=== PATIENT | male | born 1975 | race Caucasian/White ===

== ENCOUNTER 2017-02-21 22:46 | Inpatient (IN) | payer SELFPAY ==
[2017-02-21] MEDS ORDERED: SODIUM CHLOR 0.9% 1000 ML INJ 1,000 ML IV SCH (22:49)
[2017-02-21 22:50] VITALS: BP 95/66; PULSE 103; RESP 20
--- NOTE | 2017-02-21 22:54 | PD ---
HPI Chief Complaint: OD/ Ingestion Time Seen by Provider: 22:49 Travel History International Travel<30 days: No Contact w/Intl Traveler<30days: No Traveled to known affect area: No History of Present Illness HPI EMS AND POLICE PLACED HANDCUFFS TO ASSIST TRANSFER, PT WAS AMS, SPEAKING FASTH AND GIBBERISHLY INITIALLY FOUND BRADYPNEIC AND PINPOINT PUPILS BUT BECAME VERY AGITATED AFTER NARCAN GIVEN. SO MUCH SO THAT HE REQUIRED HANDCUFFS PREVIOUSLY MENTIONED PFSH Social History Tobacco Use: Yes Allergies-Medications (Allergen,Severity, Reaction): Coded Allergies: No Known Allergies (Unverified , 02/21/17) Reported Meds & Prescriptions Reported Meds & Active Scripts Active Active Prescriptions or Reported Medications Unobtainable Review of Systems ROS Limitations: Intoxication, Altered Mental Status Except as stated in HPI: all other systems reviewed are Neg Physical Exam Narrative GENERAL: SKIN: Warm and dry. HEAD: Atraumatic. Normocephalic. EYES: Pupils equal and round. No scleral icterus. No injection or drainage. ENT: No nasal bleeding or discharge. Mucous membranes pink and moist. NECK: Trachea midline. No JVD. CARDIOVASCULAR: Regular rate and rhythm, TACHYCARDIC RESPIRATORY: No accessory muscle use. Clear to auscultation. Breath sounds equal bilaterally. GASTROINTESTINAL: Abdomen soft, non-tender, nondistended. Hepatic and splenic margins not palpable. MUSCULOSKELETAL: Extremities without clubbing, cyanosis, or edema. No obvious deformities. NEUROLOGICAL: Awake and alert. No obvious cranial nerve deficits. Motor grossly within normal limits. Five out of 5 muscle strength in the arms and legs. Normal speech. PSYCHIATRIC: PRESSURED SPEECH, AND FLIGHT OF IDEAS, SHORT ATTENTION SPAN Data Data Last Documented VS Vital Signs Date Time Temp Pulse Resp B/P Pulse Ox O2 Delivery O2 Flow Rate FiO2 02/22/17 02:10 100 18 109/72 100 Nasal Cannula 2 Orders Electrocardiogram (02/21/17 22:49) Complete Blood Count With Diff (02/21/17 22:49) Comprehensive Metabolic Panel (02/21/17 22:49) Creatine Kinase (Cpk) (02/21/17 22:49) Prothrombin Time / Inr (Pt) (02/21/17 22:49) Act Partial Throm Time (Ptt) (02/21/17 22:49) Troponin I (02/21/17 22:49) Thyroid Stimulating Hormone (02/21/17 22:49) Urinalysis - C+S If Indicated (02/21/17 22:49) Chest, Single Ap (02/21/17 22:49) Ct Brain W/O Iv Contrast(Rout) (02/21/17 22:49) Blood Glucose (02/21/17 22:49) Ecg Monitoring (02/21/17 22:49) Iv Access Insert/Monitor (02/21/17 22:49) Oximetry (02/21/17 22:49) Sodium Chloride 0.9% Flush (Ns Flush) (02/21/17 23:00) Sodium Chlor 0.9% 1000 Ml Inj (Ns 1000 M (02/21/17 22:49) Drug Screen, Random Urine (02/21/17 22:49) Alcohol (Ethanol) (02/21/17 22:49) Tylenol (Acetaminophen) (02/21/17 22:49) Salicylates (Aspirin) (02/21/17 22:49) Haloperidol Inj (Haldol Inj) (02/21/17 23:00) Lorazepam Inj (Ativan Inj) (02/21/17 23:00) CKMB (02/21/17 22:50) CKMB% (02/21/17 22:50) Sodium Chlor 0.9% 1000 Ml Inj (Ns 1000 M (02/22/17 00:15) Ceftriaxone Inj (Rocephin Inj) (02/22/17 01:30) Azithromycin Inj (Zithromax Inj) (02/22/17 01:30) Arterial Blood Gas (Abg) (02/22/17 01:26) Admit Order (Ed Use Only) (02/22/17 02:52) Place In Observation (02/22/17 ) Vital Signs (Adult) Q4H (02/22/17 02:52) Activity Oob With Assistance (02/22/17 02:52) Diet Heart Healthy (02/22/17 Breakfast) Sodium Chloride 0.9% Flush (Ns Flush) (02/22/17 03:00) Sodium Chloride 0.9% Flush (Ns Flush) (02/22/17 09:00) Basic Metabolic Panel (Bmp) (02/23/17 06:00) Complete Blood Count With Diff (02/23/17 06:00) Case Management Consult (02/22/17 02:52) Naloxone Inj (Narcan Inj) (02/22/17 03:00) Labs Laboratory Tests Test 02/21/17 02/22/17 22:50 01:28 Prothrombin Time 12.5 SEC Prothromb Time International 1.1 RATIO Ratio Activated Partial 28.3 SEC Thromboplast Time Salicylates Level LESS THAN 1.7 MG/DL White Blood Count 7.4 TH/MM3 Red Blood Count 5.05 MIL/MM3 Hemoglobin 16.0 GM/DL Hematocrit 45.8 % Mean Corpuscular Volume 90.7 FL Mean Corpuscular Hemoglobin 31.6 PG Mean Corpuscular Hemoglobin 34.8 % Concent Red Cell Distribution Width 15.3 % Platelet Count 63 TH/MM3 Mean Platelet Volume 8.1 FL Neutrophils (%) (Auto) 67.9 % Lymphocytes (%) (Auto) 20.0 % Monocytes (%) (Auto) 8.0 % Eosinophils (%) (Auto) 3.8 % Basophils (%) (Auto) 0.3 % Neutrophils # (Auto) 5.0 TH/MM3 Lymphocytes # (Auto) 1.5 TH/MM3 Monocytes # (Auto) 0.6 TH/MM3 Eosinophils # (Auto) 0.3 TH/MM3 Basophils # (Auto) 0.0 TH/MM3 CBC Comment AUTO DIFF Differential Comment AUTO DIFF CONFIRMED Platelet Estimate LOW Platelet Morphology Comment NORMAL Sodium Level 141 MEQ/L Potassium Level 3.6 MEQ/L Chloride Level 104 MEQ/L Carbon Dioxide Level 28.9 MEQ/L Anion Gap 8 MEQ/L Blood Urea Nitrogen 20 MG/DL Creatinine 1.21 MG/DL Estimat Glomerular Filtration 67 ML/MIN Rate Random Glucose 125 MG/DL Calcium Level 7.8 MG/DL Total Bilirubin 2.0 MG/DL Aspartate Amino Transf 52 U/L (AST/SGOT) Alanine Aminotransferase 93 U/L (ALT/SGPT) Alkaline Phosphatase 89 U/L Total Creatine Kinase 472 U/L Creatine Kinase MB 6.4 NG/ML Creatine Kinase MB % 1.4 % Troponin I LESS THAN 0.02 NG/ML Total Protein 6.6 GM/DL Albumin 3.3 GM/DL Thyroid Stimulating Hormone 1.110 uIU/ML 3rd Gen Acetaminophen Level LESS THAN 2.0 MCG/ML Ethyl Alcohol Level LESS THAN 3 MG/DL Blood Gas Puncture Site RT BRACHIAL Blood Gas Patient Temperature 98.6 Blood Gas HCO3 24 mmol/L Blood Gas Base Excess -0.7 mmol/L Blood Gas Oxygen Saturation 90 % Arterial Blood pH 7.37 Arterial Blood Partial 43 mmHg Pressure CO2 Arterial Blood Partial 64 mmHG Pressure O2 Arterial Blood Oxygen Content 19.0 Vol % Arterial Blood 1.4 % Carboxyhemoglobin Arterial Blood Methemoglobin 0.6 % Blood Gas Hemoglobin 14.9 G/DL Oxygen Delivery Device NASAL CANNULA Blood Gas Liter Flow 3.5 L/M MDM Medical Decision Making Medical Screen Exam Complete: Yes Emergency Medical Condition: Yes Medical Record Reviewed: Yes Interpretation(s) NSR 90, NL INTERVALS, NO STEMI PATTERN NOTED Differential Diagnosis ICH V TOX RELATED V ELECTROLYTE ABNL V COINGESTIONS V RHABDO Narrative Course PATIENT FOUND TO HAVE BILATERAL LUNG INFILTRATES POST HEROIN OD, ALONG WITH HYPOXEMIA C/W NONCARDIOGENIC PULM EDEMA V BILATERAL PNA TREATED WITH ABX AND SUPPLEMENTAL OXYGEN GIVEN ALONG WITH AGGRESSIVE HYDRATION PER SEPSIS PROTOCOL. PATIENT DID NOT REQUIRE INTUBATION OR BIPAP, HE TOLERATED SUPPLEMENTAL OXYGEN Critical Care Narrative CRITICAL CARE NOTE: With evaluation of the patient, labs, EKG, receipt of radiologic studies, administration of medications, reevaluation the patient and discussion of the patient with the admitting physicians, the total critical care time was [60] minutes. Time to perform other separately billable procedures was not included in the critical care time. Diagnosis Primary Impression: AMS DUE TO SUBSTANCE ABUSE Additional Impressions: NONCARDIOGENIC PULMONARY EDEMA V BILATERAL PNEUMONIA HYPOXEMIA Admitting Information Admitting Physician Requests: Observation Scripts Unable to Obtain Active Prescriptions or Reported Meds Willi Macdonald MD Feb 21, 2017 22:54
[2017-02-21] MEDS ORDERED: LORazepam 2 MG/ML VIAL IV PUSH ONE (23:00)
[2017-02-21] MEDS ORDERED: HALOPERIDOL LACTATE 5 MG/ML AMP IM ONE (23:00)
[2017-02-21] MEDS ORDERED: SODIUM CHLORIDE 0.9% FLUSH 5 ML FLUSH IV FLUSH PRN (23:00)
[2017-02-21 23:31] LABS: BASOPHIL % 0.3 % (0.0-2.0); EOSINOPHIL # 0.3 TH/MM3 (0-0.4); EOSINOPHIL % 3.8 % (0.0-4.0); HEMATOCRIT 45.8 % (39.0-51.0); LYMPHOCYTE # 1.5 TH/MM3 (1.0-4.8); MEAN CELL VOLUME 90.7 FL (80.0-100.0); MEAN CORPUSCULAR HEMOGLOBIN 31.6 PG (27.0-34.0); MEAN CORPUSCULAR HGB CONC 34.8 % (32.0-36.0); NEUT % 67.9 % (16.0-70.0); PLATELET COUNT 63 TH/MM3 (150-450); RED BLOOD COUNT 5.05 MIL/MM3 (4.50-5.90); RED CELL DISTRIBUTION WIDTH 15.3 % (11.6-17.2); WHITE BLOOD COUNT 7.4 TH/MM3 (4.0-11.0)
[2017-02-21 23:32] VITALS: BP 96/58; RESP 22; O2SAT 90
[2017-02-21 23:33] VITALS: RESP 22; O2SAT 91
[2017-02-21 23:37] LABS: HEMO FLAGS AUTO DIFF
[2017-02-21 23:42] LABS: APTT (PATIENT) 28.3 SEC (24.3-30.1); INTERNATIONAL NORMALIZED RATIO 1.1 RATIO; PROTHROMBIN TIME - PATIENT 12.5 SEC (9.8-11.6)
[2017-02-21 23:52] LABS: ACETAMINOPHEN LESS THAN 2.0 MCG/ML (10.0-30.0); ALCOHOL LESS THAN 3 MG/DL (0-5); ALT (GPT) 93 U/L (12-78); ANION GAP 8 MEQ/L (5-15); AST (GOT) 52 U/L (15-37); BICARBONATE 28.9 MEQ/L (21.0-32.0); BLOOD UREA NITROGEN 20 MG/DL (7-18); CHLORIDE 104 MEQ/L (98-107); GLOMERULAR FILTRATION RATE 67 ML/MIN (>89); POTASSIUM 3.6 MEQ/L (3.5-5.1); SODIUM (NA) 141 MEQ/L (136-145)
[2017-02-21 23:55] VITALS: BP 94/56; O2SAT 93
[2017-02-22] VITALS (18 sets, daily range): BP systolic 93–113; BP diastolic 50–72; PULSE 86–109; RESP 14–18; TEMP 97.6–100.5; O2SAT 86–100
[2017-02-22 00:01] LABS: ALKALINE PHOSPHATASE 89 U/L (45-117); CREATINE KINASE 472 U/L (39-308)
[2017-02-22 00:14] LABS: CKMB 6.4 NG/ML (0.5-3.6)
[2017-02-22] MEDS ORDERED: SODIUM CHLOR 0.9% 1000 ML INJ 1,000 ML IV ONE ×3 (00:15→06:15)
--- NOTE | 2017-02-22 00:46 | RADRPT ---
EXAM DATE/TIME: 02/21/2017 23:21 [facility] COMPARISON: No previous studies available for comparison. INDICATIONS : Short of breath. MEDICAL HISTORY : None. SURGICAL HISTORY : None. ENCOUNTER: Initial ACUITY: 1 day PAIN SCORE: 0/10 LOCATION: Bilateral chest FINDINGS: Diffuse acinar opacities are present throughout both lungs, and greater in intensity in the left uppe r lobe. No air bronchograms seen. The heart is normal size. Both hemidiaphragms are well delineate d. CONCLUSION: Diffuse bilateral non-consolidative airspace opacities, more severe in the left upper lobe than in th e remainder of the lungs. Justin Blackwell MD on February 22, 2017 at 0:44 Board Certified Radiologist. This report was verified electronically.
--- NOTE | 2017-02-22 00:56 | RADRPT ---
EXAM DATE/TIME: 02/22/2017 00:40 [facility] COMPARISON: No previous studies available for comparison. INDICATIONS : Altered mental status. Possible overdose. RADIATION DOSE: 42.04 CTDIvol (mGy) ; Patient motion MEDICAL HISTORY : Non-responsive. SURGICAL HISTORY : Non-responsive. ENCOUNTER: Initial ACUITY: 1 day PAIN SCALE: Non-responsive LOCATION: cranial TECHNIQUE: Multiple contiguous axial images were obtained of the head. Using automated exposure control and adj ustment of the mA and/or kV according to patient size, radiation dose was kept as low as reasonably a chievable to obtain optimal diagnostic quality images. DICOM format image data is available electro nically for review and comparison. FINDINGS: The patient was scanned twice due to motion artifact; both scans are degraded by motion. CEREBRUM: The ventricles are normal for age. No evidence of midline shift, mass lesion, hemorrhage or acute in farction. No extra-axial fluid collections are seen. POSTERIOR FOSSA: The cerebellum and brainstem are intact. The 4th ventricle is midline. The cerebellopontine angle i s unremarkable. EXTRACRANIAL: The visualized portion of the orbits is intact. Oval opacity in the left maxillary sinus measuring 1 .4 cm. Thickening of the septa in the ethmoids bilaterally. SKULL: The calvaria is intact. No evidence of skull fracture. CONCLUSION: 1. No acute findings in the brain. 2. Left maxillary and bilateral ethmoid sinus disease. Justin Blackwell MD on February 22, 2017 at 0:52 Board Certified Radiologist. This report was verified electronically.
[2017-02-22 01:01] LABS: PLATELET ESTIMATE SMEAR LOW (NORMAL); SCAN/DIFF AUTO DIFF CONFIRMED
[2017-02-22 01:02] LABS: PLATELET MORPHOLOGY NORMAL (NORMAL)
[2017-02-22] MEDS ORDERED: cefTRIAXone INJ 1,000 MG in SODIUM CHLORIDE 0.9% INJ 100 ML IV ONE (01:30)
[2017-02-22] MEDS ORDERED: AZITHROMYCIN INJ 500 MG in SODIUM CHLOR 0.9% 250 ML INJ 250 ML IV ONE (01:30)
[2017-02-22 01:41] LABS: BLOOD GAS BASE EXCESS -0.7 mmol/L (-2-2); BLOOD GAS CARBOXYHEMOGLOBIN 1.4 % (0-4); BLOOD GAS HCO3 24 mmol/L (22-26); BLOOD GAS METHEMOGLOBIN 0.6 % (0-2); BLOOD GAS O2 HGB SATURATION 90 % (90-100); BLOOD GAS PCO2 43 mmHg (38-42); BLOOD GAS PO2 64 mmHG (61-120); BLOOD GAS TOTAL HGB 14.9 G/DL (12.0-16.0); CRITICAL VALUE NO; DRAW SITE RT BRACHIAL; LITER FLOW 3.5 L/M; NUMBER OF ARTERIAL PUNCTURES 1; OXYGEN DEVICE NASAL CANNULA; STAT YES; TEMP CORR TO 98.6
[2017-02-22] MEDS ORDERED: SODIUM CHLORIDE 0.9% FLUSH 10 ML FLUSH IV FLUSH PRN (03:00)
[2017-02-22] MEDS ORDERED: NALOXONE HCL 0.4 MG/ML AMP IV PRN (03:00)
--- NOTE | 2017-02-22 08:58 | HHI.HP ---
[facility] No Primary Care Physician Admission Diagnosis PNA W/HYPOXEMIA, OPIATE OVERDOSE Diagnoses: Chief Complaint: overdose, unresponsive Travel History International Travel<30 Days: No Contact w/Intl Traveler <30 Da: No Traveled to Known Affected Are: No Sepsis Criteria SIRS Criteria (2 or more): Heart rate over 90, RR > 20 or PaCO2 < 32 Sepsis Criteria (SIRS+source): Infect source susp/known Criteria Outcome: Meets sepsis criteria History of Present Illness Written by Edel Andrews, acting as scribe for Dr. Tineo on 02/22/17 at 08:52. This note was transcribed by scribe PATTIE Naqvi. I, Dr. Rohan Tineo personally performed the history, physical exam, and medical decision making; and confirmed the accuracy of the information in the transcribed note. Authenticated by Dr. Rohan Tineo on 02/22/17 at 19:25. 41-year-old male with history of polysubstance use, IVDU, presents after being found unresponsive last night 02/21/17 around 10pm. The patient is currently very drowsy, difficult to obtain history. His fiance is at bedside and assists with the history. She reports she came home yesterday and found him unresponsive in bed. She reports his mouth was bleeding with pink foam in the mouth when she found him. She couldn't feel a pulse and didn't see him breathing , so she gave him 2 rescue breaths and the patient started breathing. She called 911 immediately. EVAC gave him Narcan and he immediately responded. No reported bladder or bowel incontinence. He was recently in residential for 41 days however released 4 days ago. The patient admits to injecting heroin sometime yesterday. He states he has injected heroin previously and did not use anymore than usual. He did get this heroin from a different supplier and is worried it may have been laced with fentanyl. Denies any intentional overdose. Upon arrival to the ER, the patient was extremely combative, requiring leather restraints, Ativan 2mg, and Haldol 10mg. CXR shows diffuse bilateral non- consolidative airspace opacities, more severe in AYALA. The patient admits to having a sore throat yesterday morning with occasional nonproductive cough. Denies recent fevers or chills. He denies any other medical complaints at this time. Review of Systems ROS Limitations: Clinical Condition, Poor Historian Except as stated in HPI: all other systems reviewed are Neg Past Family Social History Past Medical History Polysubstance abuse/IVDU Possible hepatitis C, patient unsure Denies any history of diabetes, hypertension, or heart disease. Past Surgical History Denies any prior surgeries. Reported Medications Does not take medications on a regular basis. Allergies: Coded Allergies: No Known Allergies (Unverified , 02/21/17) Active Ordered Medications Current Medications Medications (Trade) Dose Ordered Sig/Lyle Route Start Time Stop Time Status Last Admin (NS Flush) 2 ml UNSCH PRN IV FLUSH 02/22/17 03:00 (NS Flush) 2 ml BID IV FLUSH 02/22/17 09:00 (Narcan Inj) 0.4 mg UNSCH PRN IV 02/22/17 03:00 Family History Denies any significant family history. Social History Denies any tobacco or alcohol use. Admits to IVDU with heroin and opiates mostly Physical Exam Vital Signs Vital Signs Date Time Temp Pulse Resp B/P Pulse Ox O2 Delivery O2 Flow Rate FiO2 02/22/17 06:34 92 18 100/59 94 Nasal Cannula 3 02/22/17 06:26 95 18 99/57 95 Nasal Cannula 3 02/22/17 06:00 101 18 93/50 93 Nasal Cannula 3 02/22/17 03:55 109 18 97/55 95 Nasal Cannula 3 02/22/17 02:10 100 18 109/72 100 Nasal Cannula 2 02/22/17 01:44 98 18 107/66 95 Nasal Cannula 3 02/22/17 00:48 91 18 113/70 96 Nasal Cannula 3 02/21/17 23:55 94/56 93 Nasal Cannula 6 02/21/17 23:33 22 91 Nasal Cannula 6 02/21/17 23:32 22 96/58 90 Nasal Cannula 6 02/21/17 23:27 91 Nasal Cannula 6 02/21/17 22:50 103 20 95/66 Physical Exam GENERAL: Well-nourished, well-developed middle aged male patient in NAD. Very drowsy. SKIN: Warm and dry. No rash. HEAD: Normocephalic. Atraumatic. EYES: Pupils equal and round. No scleral icterus. No injection or drainage. ENT: No nasal bleeding or discharge. Mucous membranes dry. NECK: Supple. Trachea midline. CARDIOVASCULAR: Regular rate and rhythm. S1, S2 noted. No murmur appreciated. RESPIRATORY: No accessory muscle use. Clear to auscultation. Breath sounds equal bilaterally. GASTROINTESTINAL: Abdomen soft, non-tender, nondistended. Normoactive bowel sounds x4. MUSCULOSKELETAL: No obvious deformities. Extremities without clubbing, cyanosis , or edema. NEUROLOGICAL: Awake but very drowsy. No obvious cranial nerve deficits. Motor grossly within normal limits. Moving all extremities spontaneously. Normal speech. PSYCHIATRIC: Appropriate mood and affect; insight and judgment normal. Laboratory Laboratory Tests Test 02/21/17 02/22/17 22:50 01:28 Prothrombin Time 12.5 Prothromb Time International 1.1 Ratio Activated Partial 28.3 Thromboplast Time Salicylates Level LESS THAN 1.7 White Blood Count 7.4 Red Blood Count 5.05 Hemoglobin 16.0 Hematocrit 45.8 Mean Corpuscular Volume 90.7 Mean Corpuscular Hemoglobin 31.6 Mean Corpuscular Hemoglobin 34.8 Concent Red Cell Distribution Width 15.3 Platelet Count 63 Mean Platelet Volume 8.1 Neutrophils (%) (Auto) 67.9 Lymphocytes (%) (Auto) 20.0 Monocytes (%) (Auto) 8.0 Eosinophils (%) (Auto) 3.8 Basophils (%) (Auto) 0.3 Neutrophils # (Auto) 5.0 Lymphocytes # (Auto) 1.5 Monocytes # (Auto) 0.6 Eosinophils # (Auto) 0.3 Basophils # (Auto) 0.0 CBC Comment AUTO DIFF Differential Comment AUTO DIFF CONFIRMED Platelet Estimate LOW Platelet Morphology Comment NORMAL Sodium Level 141 Potassium Level 3.6 Chloride Level 104 Carbon Dioxide Level 28.9 Anion Gap 8 Blood Urea Nitrogen 20 Creatinine 1.21 Estimat Glomerular Filtration 67 Rate Random Glucose 125 Calcium Level 7.8 Total Bilirubin 2.0 Aspartate Amino Transf 52 (AST/SGOT) Alanine Aminotransferase 93 (ALT/SGPT) Alkaline Phosphatase 89 Total Creatine Kinase 472 Creatine Kinase MB 6.4 Creatine Kinase MB % 1.4 Troponin I LESS THAN 0.02 Total Protein 6.6 Albumin 3.3 Thyroid Stimulating Hormone 1.110 3rd Gen Acetaminophen Level LESS THAN 2.0 Ethyl Alcohol Level LESS THAN 3 Blood Gas Puncture Site RT BRACHIAL Blood Gas Patient Temperature 98.6 Blood Gas HCO3 24 Blood Gas Base Excess -0.7 Blood Gas Oxygen Saturation 90 Arterial Blood pH 7.37 Arterial Blood Partial 43 Pressure CO2 Arterial Blood Partial 64 Pressure O2 Arterial Blood Oxygen Content 19.0 Arterial Blood 1.4 Carboxyhemoglobin Arterial Blood Methemoglobin 0.6 Blood Gas Hemoglobin 14.9 Oxygen Delivery Device NASAL CANNULA Blood Gas Liter Flow 3.5 Result Diagram: 02/21/17224902/21/172249 Imaging Last Impressions Chest CT 02/22/17 0000 Signed Impressions: Service Date/Time: Wednesday, February 22, 2017 10:05 - CONCLUSION: 1. Bilateral alveolar infiltrates left greater than right with focal 2 cm area of consolidation in the left lower lobe. The differential diagnosis includes pneumonia and pulmonary edema. 2. Minimal bilateral pleural effusions left greater than right. Chetan Moser MD Head CT 02/21/172248 Signed Impressions: Service Date/Time: Wednesday, February 22, 2017 00:40 - CONCLUSION: 1. No acute findings in the brain. 2. Left maxillary and bilateral ethmoid sinus disease. Justin Blackwell MD Chest X-Ray 02/21/172248 Signed Impressions: Service Date/Time: Tuesday, February 21, 2017 23:21 - CONCLUSION: Diffuse bilateral non-consolidative airspace opacities, more severe in the left upper lobe than in the remainder of the lungs. Justin Blackwell MD Assessment and Plan Problem List: (1) Toxic encephalopathy ICD Code: G92 Status: Acute (2) Overdose of heroin ICD Code: T40.1X1A Status: Acute (3) Sepsis ICD Code: A41.9 Status: Acute (4) Aspiration pneumonia ICD Code: J69.0 Status: Acute (5) Acute respiratory failure with hypoxia ICD Code: J96.01 Status: Acute Assessment and Plan 41-year-old male with history of polysubstance use, IVDU, presents after being found unresponsive last night 02/21/17 around 10pm. Toxic Encephalopathy secondary to Accidental Overdose: injected heroin, s/p Narcan en route with improvement, then combative in ER s/p Ativan/Haldol. Slowly improving. -Head CT images reviewed, no acute findings; left maxillary and bilateral ethmoid sinus disease -Check UDS -Continue neuro checks -Monitor on telemetry -Nursing bedside swallow, advance diet as tolerated Sepsis with Aspiration Pneumonia: meets sepsis criteria with tachycardia HR 109 , tachypnea RR 22, with suspected source-pneumonia. Febrile 100.0, no leukocytosis. -CXR images reviewed, shows diffuse bilateral non-consolidative airspace opacities, more severe in AYALA. -Chest CT with IV contrast images reviewed, shows bilateral alveolar infiltrates L > R with focal 2cm area of consolidation in LLL, ddx pneumonia vs pulmonary edema -S/p 4L IVF bolus in the ED, will hold off on additional fluids for now with possible pulmonary edema -Start on antibiotics with IV Unasyn 3GM q6h and IV Levaquin 750mg qd -Check blood cultures and UA -Check lactic acid -monitor for improvement Acute Hypoxic Respiratory Failure: O2 sat down to 86% while on 3L NC. Suspect secondary to overdose and aspiration pneumonia as above. -changed to simple mask -continuous pulse oximetry monitoring -continue antibiotics as above -incentive spirometry IV Drug Abuse: acute on chronic, reportedly clean while in residential for 41 days, released 4 days ago -will need to travel counselor automobile [employer] on cessation when patient more awake/alert Transaminitis: LFTs elevated. No previous labs to compare. No abdominal complaints. -check hepatitis panel -avoid hepatotoxins -monitor LFTs Mild Rhabdomyolysis: likely secondary to drug overdose. CPK 472. -check repeat CPK and urinalysis DVT Prophylaxis: teds/SCDs Converted patient to full admission status due to sepsis, pneumonia, overdose. Anticipate 2-3 days of hospitalization. Discussed Condition With Patient, Patient's GARCÍA valente RN, CDU RN Edel Andrews PA-C Feb 22, 2017 08:58 Fortino Tineo DO Feb 22, 2017 19:27
[2017-02-22] MEDS: SODIUM CHLORIDE 0.9% FLUSH 10 ML FLUSH IV FLUSH SCH ×2 (09:00→21:00)
[2017-02-22] MEDS ORDERED: IOHEXOL 350 MG/ML 10 ML VIAL (for RAD DIAG) IV ONE (10:12)
--- NOTE | 2017-02-22 10:33 | RADRPT ---
EXAM DATE/TIME: 02/22/2017 10:05 [facility] COMPARISON: CHEST SINGLE AP, February 21, 2017, 23:21. INDICATIONS : Shortness of breath. Abnormal chest x-ray exam demonstrating airspace opacities. Evaluate for pneumon ia. IV CONTRAST: 70 cc Omnipaque 350 (iohexol) IV RADIATION DOSE: 4.00 CTDIvol (mGy) MEDICAL HISTORY : None SURGICAL HISTORY : None. ENCOUNTER: Initial ACUITY: 1 day PAIN SCALE: 3/10 LOCATION: chest TECHNIQUE: Volumetric scanning of the chest was performed. Using automated exposure control and adjustment of t he mA and/or kV according to patient size, radiation dose was kept as low as reasonably achievable to obtain optimal diagnostic quality images. DICOM format image data is available electronically for review and comparison. Follow-up recommendations for detected pulmonary nodules are based at a minimum on nodule size and pa tient risk factors according to Fleischner Society Guidelines. FINDINGS: LUNGS: There is no pneumothorax. There are bilateral alveolar opacities greatest in the perihilar regions ex tending into the upper and lower lobes left greater than right. There is a more focal 2 cm area conso lidation in the medial left lower lobe. PLEURA: There are small bilateral pleural effusions left greater the right. MEDIASTINUM: The heart and great vessels demonstrate no acute abnormality. There is no mediastinal or hilar lymph adenopathy. AXILLAE: Within normal limits. No lymphadenopathy. SKELETAL: Within normal limits for patient age. MISCELLANEOUS: The visualized upper abdominal organs demonstrate no acute abnormality. CONCLUSION: 1. Bilateral alveolar infiltrates left greater than right with focal 2 cm area of consolidation in th e left lower lobe. The differential diagnosis includes pneumonia and pulmonary edema. 2. Minimal bilateral pleural effusions left greater than right. Chetan Moser MD on February 22, 2017 at 10:26 Board Certified Radiologist. This report was verified electronically.
[2017-02-22 12:30] LABS: BLOOD, URINE NEG (NEG); COMMENT (UR) CULT NOT INDICATED; CULTURE IF INDICATED CULT NOT INDICATED; GLUCOSE,URINE NEG (NEG); KETONE, URINE NEG (NEG); MUCUS URINE FEW /lpf (OCC); NITRITE,URINE NEG (NEG); PH, URINE 5.5 (5.0-8.5); SQUAMOUS EPITHELIAL CELL URINE <1 /hpf (0-5); URINE COLOR YELLOW (YELLW/STRAW)
[2017-02-22] MEDS: AMPICILLIN-SULBACTAM INJ 3 GM in SODIUM CHLORIDE 0.9% INJ 100 ML IV SCH ×2 (12:56→18:13)
[2017-02-22] MEDS ORDERED: LEVOFLOXACIN 750 MG PREMIX INJ 150 ML IV SCH (13:00)
[2017-02-22] MEDS ORDERED: PIPERACIL-TAZO 4.5 GM PREMIX 100 ML IV SCH (13:00)
[2017-02-22 14:37] LABS: POTASSIUM 3.4 MEQ/L (3.5-5.1)
[2017-02-22 15:04] LABS: CALCIUM-PROTEIN CORRECTED 8.5 MG/DL (8.5-10.1)
[2017-02-22] MEDS ORDERED: IBUPROFEN 600 MG TAB PO PRN (18:30)
[2017-02-23 00:15] VITALS: BP 115/70; PULSE 80; RESP 18; TEMP 98; O2SAT 98
[2017-02-23] MEDS: AMPICILLIN-SULBACTAM INJ 3 GM in SODIUM CHLORIDE 0.9% INJ 100 ML IV SCH ×2 (00:22→06:48)
[2017-02-23] MEDS ORDERED: AZITHROMYCIN INJ 500 MG in SODIUM CHLOR 0.9% 250 ML INJ 250 ML IV SCH (02:00)
[2017-02-23 03:55] VITALS: BP 135/82; PULSE 79; RESP 18; TEMP 98.8; O2SAT 99
[2017-02-23 08:08] LABS: AUTOMATED NEUTROPHIL # 3.2 TH/MM3 (1.8-7.7); BASOPHIL % 0.5 % (0.0-2.0); EOSINOPHIL # 0.2 TH/MM3 (0-0.4); EOSINOPHIL % 4.3 % (0.0-4.0); HEMO FLAGS AUTO DIFF; LYMPH % 28.7 % (9.0-44.0); LYMPHOCYTE # 1.5 TH/MM3 (1.0-4.8); MEAN CELL VOLUME 92.3 FL (80.0-100.0); MEAN CORPUSCULAR HGB CONC 34.7 % (32.0-36.0); MONO % 6.7 % (0.0-8.0); NEUT % 59.8 % (16.0-70.0); PLATELET COUNT 41 TH/MM3 (150-450); RED BLOOD COUNT 4.34 MIL/MM3 (4.50-5.90); RED CELL DISTRIBUTION WIDTH 15.5 % (11.6-17.2); WHITE BLOOD COUNT 5.4 TH/MM3 (4.0-11.0)
[2017-02-23 08:27] LABS: POTASSIUM 3.7 MEQ/L (3.5-5.1)
--- NOTE | 2017-02-23 08:35 | EKG ---
Date Performed: 02/21/2017 Time Performed: 23:53:55 PTAGE: 41 years EKG: Sinus rhythm NO PREVIOUS TRACING DOCTOR: Harsh Pineda Interpretating Date/Time 02/23/2017 08:34:00
[2017-02-23 09:33] LABS: PLATELET ESTIMATE SMEAR LOW (NORMAL); PLATELET MORPHOLOGY NORMAL (NORMAL); SCAN/DIFF AUTO DIFF CONFIRMED
[2017-02-23] MEDS: SODIUM CHLORIDE 0.9% FLUSH 10 ML FLUSH IV FLUSH SCH (10:05)
--- NOTE | 2017-02-23 11:47 | HHI.PR ---
Subjective Remarks Follow up for polysubstance abuse, overdose. During morning rounds, patient is more alert, coherent speech. He reports no fever, chills or any other acute concerns. I told him that we will likely discharge him home with oral abx for suspected aspiration pneumonia. Later on in the morning, RN called to report that patient left AMA. Objective Vitals Vital Signs Date Time Temp Pulse Resp B/P Pulse Ox O2 Delivery O2 Flow Rate FiO2 02/23/17 03:55 98.8 79 18 135/82 99 02/23/17 00:15 98.0 80 18 115/70 98 02/22/17 20:24 98.0 89 18 110/60 97 02/22/17 20:23 98 Nasal Cannula 3.00 02/22/17 19:25 97 Nasal Cannula 3.00 02/22/17 18:14 100.5 02/22/17 17:38 98 Nasal Cannula 3.00 02/22/17 17:24 98.2 95 18 103/57 95 02/22/17 14:19 97.6 86 14 100/59 99 02/22/17 12:02 98 Nasal Cannula 3.00 I/O 02/22/17 02/22/17 02/22/17 02/23/17 02/23/17 02/23/17 07:00 15:00 23:00 07:00 15:00 23:00 Intake Total 100 ml Output Total 200 ml 550 ml 475 ml Balance -200 ml -550 ml -375 ml Intake IV Total 100 ml Output Urine Total 200 ml 550 ml 475 ml # Voids 1 Result Diagram: 02/23/17 0746 02/23/17 0746 Imaging Last Impressions Chest CT 02/22/17 0000 Signed Impressions: Service Date/Time: Wednesday, February 22, 2017 10:05 - CONCLUSION: 1. Bilateral alveolar infiltrates left greater than right with focal 2 cm area of consolidation in the left lower lobe. The differential diagnosis includes pneumonia and pulmonary edema. 2. Minimal bilateral pleural effusions left greater than right. Chetan Moser MD Head CT 02/21/17 2249 Signed Impressions: Service Date/Time: Wednesday, February 22, 2017 00:40 - CONCLUSION: 1. No acute findings in the brain. 2. Left maxillary and bilateral ethmoid sinus disease. Justin Blackwell MD Chest X-Ray 02/21/17 2249 Signed Impressions: Service Date/Time: Tuesday, February 21, 2017 23:21 - CONCLUSION: Diffuse bilateral non-consolidative airspace opacities, more severe in the left upper lobe than in the remainder of the lungs. Justin Blackwell MD Objective Remarks GENERAL: Alert, NAD. SKIN: Warm and dry. HEAD: Normocephalic. EYES: No scleral icterus. No injection or drainage. NECK: Supple, trachea midline. No JVD or lymphadenopathy. CARDIOVASCULAR: Regular rate and rhythm without murmurs, gallops, or rubs. RESPIRATORY: Breath sounds equal bilaterally. No accessory muscle use. GASTROINTESTINAL: Abdomen soft, non-tender, nondistended. MUSCULOSKELETAL: No cyanosis, or edema. BACK: Nontender without obvious deformity. No CVA tenderness. Procedures None. A/P Problem List: (1) Toxic encephalopathy ICD Code: G92 - Toxic encephalopathy Status: Acute (2) Overdose of heroin ICD Code: T40.1X1A - Poisoning by heroin, accidental (unintentional), initial encounter Status: Acute (3) Sepsis ICD Code: A41.9 - Sepsis, unspecified organism Status: Acute (4) Aspiration pneumonia ICD Code: J69.0 - Pneumonitis due to inhalation of food and vomit Status: Acute (5) Acute respiratory failure with hypoxia ICD Code: J96.01 - Acute respiratory failure with hypoxia Status: Acute Assessment and Plan 41-year-old male with history of polysubstance use, IVDU, presents after being found unresponsive last night 02/21/17 around 10pm. Toxic Encephalopathy secondary to Accidental Overdose: injected heroin, s/p Narcan en route with improvement, then combative in ER s/p Ativan/Haldol. Slowly improving. -Head CT images reviewed, no acute findings; left maxillary and bilateral ethmoid sinus disease -Checked UDS == > positive for Amphetamines. -Nursing bedside swallow, advance diet as tolerated Sepsis with Aspiration Pneumonia: meets sepsis criteria with tachycardia HR 109 , tachypnea RR 22, with suspected source-pneumonia. Febrile 100.0, no leukocytosis. -CXR images reviewed, shows diffuse bilateral non-consolidative airspace opacities, more severe in [place]. -Chest CT with IV contrast images reviewed, shows bilateral alveolar infiltrates L > R with focal 2cm area of consolidation in LLL, ddx pneumonia vs pulmonary edema -S/p 4L IVF bolus in the ED, will hold off on additional fluids for now with possible pulmonary edema -Start on antibiotics with IV Unasyn 3GM q6h and IV Levaquin 750mg qd -Check blood cultures and UA -Check lactic acid -monitor for improvement - Plan was to discharge patient on Levaquin, Flagyl or Augmentin. He left AMA. Acute Hypoxic Respiratory Failure: O2 sat down to 86% while on 3L NC. Suspect secondary to overdose and aspiration pneumonia as above. 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 Transaminitis: LFTs elevated. No previous labs to compare. No abdominal complaints. -check hepatitis panel -avoid hepatotoxins -monitor LFTs Mild Rhabdomyolysis: likely secondary to drug overdose. CPK 472. -check repeat CPK and urinalysis DVT Prophylaxis: teds/SCDs Discharge patient - Pt left Against medical advice. Condition on discharge: Improved - however, patient needed PO abx. Regular Diet as tolerated Ad Mady activity Rx written: Patient left before re-evaluation was done. He was told that there was a good possibility of discharge. Follow-up with primary care physician Fortino Nelson DO Feb 23, 2017 11:46
== END 2017-02-23 12:35 | disposition left against medical advice (07) | DRG 917 ==
LOC: NEPC 22:46 → NEDA 02-22 02:54 → NEDH 02-22 06:42 → NEPHCDU 02-22 09:23 → OBSVTOIN 02-22 11:15 → N06A 02-23 08:29
PROVIDERS: ADMIT Hospitalist; ATTEND Hospitalist
DX: T40.1X1A Poisoning by heroin, accidental (unintentional), initial encounter (principal); A41.9 Sepsis, unspecified organism; J96.01 Acute respiratory failure with hypoxia; J69.0 Pneumonitis due to inhalation of food and vomit; G92 Toxic encephalopathy; J90 Pleural effusion, not elsewhere classified; M62.82 Rhabdomyolysis; F19.10 Other psychoactive substance abuse, uncomplicated; Z72.0 Tobacco use; R74.0 Nonspecific elevation of levels of transaminase and lactic acid dehydrogenase [LDH]; R00.0 Tachycardia, unspecified
CPT/HCPCS: 36600; 70450; 71010; 71260; 80048; 80053; 80074; 80307; 81001; 82550; 82552; 82805; 83605; 83735; 84155; 84443; 84484; 85025; 85610; 85730; 87040; 93005; 94150; 96361; 96365; 96372; 96375; J0295; J0456; J0696; J1630; J1956; J2060; J7030; J7050; Q9967